=== PATIENT | male | born 1955 | race Caucasian/White ===

== ENCOUNTER 2019-04-05 13:12 | Emergency (ER) | payer OTHER ==
--- NOTE | 2019-04-05 14:30 | RAD REPORT ---
EXAM DESCRIPTION: RAD - Ankle Right 3 View - 04/05/2019 2:14 pm CLINICAL HISTORY: PAIN COMPARISON: No comparisons FINDINGS: Moderate soft tissue swelling is seen particularly along the lateral malleolus. Small bony fragments are present adjacent to the lateral malleolus, however favored to be related to previous t rauma. No definitive acute fracture seen. Large calcaneal spurs at identified.
--- NOTE | 2019-04-05 14:35 | ER ---
Nurse's Notes [facility] Name: Kulwant Martinez Age: 63 yrs Sex: Male : 1955 Arrival Date: 04/05/2019 Time: 13:14 Bed 11 Private MD: Emiliano Crisostomo E Diagnosis: Sprain of ankle Presentation: 04/05 13:32 Presenting complaint: Patient states: "I stepped in a hole the other day and blew out ss my ankle pretty bad. I guess it's just sprained, but it is hurting really bad." C/o R ankle pain. Transition of care: patient was not received from another setting of care. Onset of symptoms was April 03, 2019. Risk Assessment: Do you want to hurt yourself or someone else? Patient reports no desire to harm self or others. Initial Sepsis Screen: Does the patient meet any 2 criteria? No. Patient's initial sepsis screen is negative. Does the patient have a suspected source of infection? No. Patient's initial sepsis screen is negative. Note Pt ambulated to triage with steady gait/ cane. Care prior to arrival: None. 13:32 Method Of Arrival: Ambulatory ss 13:32 Acuity: MK 4 ss Historical: - Allergies: 13:34 No Known Allergies; ss - PMHx: 13:34 Hypertension; ss - Immunization history:: Adult Immunizations unknown. - Social history:: Smoking status: Patient uses tobacco products, smokes one pack cigarettes per day. - Ebola Screening: : Patient denies exposure to infectious person Patient denies travel to an Ebola-affected area in the 21 days before illness onset. Screenin:00 Abuse screen: Denies threats or abuse. Denies injuries from another. Nutritional iw screening: No deficits noted. Tuberculosis screening: No symptoms or risk factors identified. Fall Risk None identified. Assessment: 14:00 General: Appears in no apparent distress. Behavior is calm, cooperative. Pain: iw Complains of pain in right ankle and anterior aspect of right ankle. Neuro: Level of Consciousness is awake, alert, obeys commands. Cardiovascular: Patient's skin is warm and dry. Respiratory: Respiratory effort is even, unlabored. Musculoskeletal: Range of motion: intact in all extremities. Vital Signs: 13:34 BP 145 / 71; Pulse 87; Resp 20; Temp 98.2(TE); Pulse Ox 98% on R/A; Weight 117.93 kg; ss Height 5 ft. 10 in. (177.80 cm); Pain 8/10; 13:34 Body Mass Index 37.31 (117.93 kg, 177.80 cm) ED Course: 13:14 Patient arrived in ED. rg4 13:14 Emiliano Crisostomo MD is Private Physician. rg4 13:33 Triage completed. ss 13:34 Arm band placed on right wrist. ss 13:40 Rachel Dumont FNP-C is PHCP. kb 13:40 Nolan Gupta MD is Attending Physician. kb 13:54 Rachel Dumont FNP-C is PHCP. kb 13:54 Nolan Gupta MD is Attending Physician. kb 13:54 Meghan Stubbs, TAYLER is Primary Nurse. iw 14:00 No provider procedures requiring assistance completed. Patient did not have IV access iw during this emergency room visit. 14:14 XRAY Ankle RIGHT 3 view In Process Unspecified. EDMS 14:49 Patient has correct armband on for positive identification. iw Administered Medications: No medications were administered Outcome: 14:34 Discharge ordered by MD. kb 14:49 Discharged to home ambulatory. iw 14:49 Condition: good 14:49 Discharge instructions given to patient, Instructed on discharge instructions, follow up and referral plans. Demonstrated understanding of instructions, follow-up care. 14:50 Patient left the ED. iw Signatures: Dispatcher [employer] EDMS Rachel Dumont FNP-C FNP-Meghan Kong RN RN Joie Nguyen RN RN Claier Rhoades rg4
--- NOTE | 2019-04-05 14:35 | EDPHYS ---
Physician Documentation [facility] Name: Kulwant Martinez Age: 63 yrs Sex: Male : 1955 Arrival Date: 04/05/2019 Time: 13:14 Bed 11 Private MD: Emiliano Crisostomo E ED Physician Nolan Gupta HPI: 04/05 14:36 This 63 yrs old Male presents to ER via Ambulatory with complaints of Ankle kb Injury. 14:36 The patient presents with an injury, pain, that is acute, swelling, tenderness. The kb complaints affect the right ankle. Onset: The symptoms/episode began/occurred 2 day(s) ago. Context: The problem was sustained outdoors, resulted from stepped in a hole, The patient can fully bear weight on the affected extremity. can ambulate using a cane. Associated signs and symptoms: Pertinent positives: swelling, Pertinent negatives: calf tenderness, fever, nausea, numbness, rash, tingling, vomiting, warmth, weakness. Modifying factors: The symptoms are alleviated by nothing, the symptoms are aggravated by weight bearing. Severity of symptoms: At their worst the symptoms were moderate, in the emergency department the symptoms are unchanged. The patient has not experienced similar symptoms in the past. The patient has not recently seen a physician. Pt reprots he stepped in a hole on Friday and hurt his ankle. Came to make sure it wasn't broken. Historical: - Allergies: 13:34 No Known Allergies; ss - PMHx: 13:34 Hypertension; ss - Immunization history:: Adult Immunizations unknown. - Social history:: Smoking status: Patient uses tobacco products, smokes one pack cigarettes per day. - Ebola Screening: : Patient denies exposure to infectious person Patient denies travel to an Ebola-affected area in the 21 days before illness onset. ROS: 14:35 Constitutional: Negative for fever, chills, and weight loss, Cardiovascular: Negative kb for chest pain, palpitations, and edema, Respiratory: Negative for shortness of breath, cough, wheezing, and pleuritic chest pain, Abdomen/GI: Negative for abdominal pain, nausea, vomiting, diarrhea, and constipation, Skin: Negative for injury, rash, and discoloration, Neuro: Negative for headache, weakness, numbness, tingling, and seizure. 14:35 MS/extremity: Positive for injury or acute deformity, pain, swelling, tenderness, of the right ankle. Exam: 14:35 Constitutional: This is a well developed, well nourished patient who is awake, alert, kb and in no acute distress. Head/Face: Normocephalic, atraumatic. Chest/axilla: Normal chest wall appearance and motion. Nontender with no deformity. No lesions are appreciated. Cardiovascular: Regular rate and rhythm with a normal S1 and S2. No gallops, murmurs, or rubs. Normal PMI, no JVD. No pulse deficits. Respiratory: Lungs have equal breath sounds bilaterally, clear to auscultation and percussion. No rales, rhonchi or wheezes noted. No increased work of breathing, no retractions or nasal flaring. Abdomen/GI: Soft, non-tender, with normal bowel sounds. No distension or tympany. No guarding or rebound. No evidence of tenderness throughout. Skin: Warm, dry with normal turgor. Normal color with no rashes, no lesions, and no evidence of cellulitis. Neuro: Awake and alert, GCS 15, oriented to person, place, time, and situation. Cranial nerves II-XII grossly intact. Motor strength 5/5 in all extremities. Sensory grossly intact. Cerebellar exam normal. Normal gait. 14:35 Musculoskeletal/extremity: Extremities: grossly normal except: noted in the right ankle: pain, swelling, tenderness, ROM: intact in all extremities, Circulation is intact in all extremities. Sensation intact. Weight bearing: can bear weight with assistance only, uses cane. Vital Signs: 13:34 BP 145 / 71; Pulse 87; Resp 20; Temp 98.2(TE); Pulse Ox 98% on R/A; Weight 117.93 kg; ss Height 5 ft. 10 in. (177.80 cm); Pain 8/10; 13:34 Body Mass Index 37.31 (117.93 kg, 177.80 cm) ss MDM: 13:54 Patient medically screened. kb 14:32 Data reviewed: vital signs, nurses notes. Data interpreted: Pulse oximetry: on room air kb is 98 %. Interpretation: normal. Counseling: I had a detailed discussion with the patient and/or guardian regarding: the historical points, exam findings, and any diagnostic results supporting the discharge/admit diagnosis, radiology results, the need for outpatient follow up, a orthopedic surgeon, to return to the emergency department if symptoms worsen or persist or if there are any questions or concerns that arise at home. 04/05 13:35 Order name: XRAY Ankle RIGHT 3 view; Complete Time: 14:32 ss Administered Medications: No medications were administered Disposition: 04/06 06:56 Co-signature as Attending Physician, Nolan Gupta MD I agree with the assessment and alta plan of care. Disposition: 04/05/19 14:34 Discharged to Home. Impression: Sprain of ankle. - Condition is Stable. - Discharge Instructions: Ankle Sprain, [id number]. - Medication Reconciliation Form, Thank You Letter, Antibiotic Education, Prescription Opioid Use form. - Follow up: Emergency Department; When: As needed; Reason: Worsening of condition. Follow up: Private Physician; When: 2 - 3 days; Reason: Recheck today's complaints, Continuance of care, Re-evaluation by your physician. Signatures: Dispatcher [employer] EDRachel Cuba, CAISSON WORKER-C CAISSON WORKER-Nolan Pinedo MD MD cha Williams, Irene, TAYLER RN iw Joie Nguyen RN RN ss Corrections: (The following items were deleted from the chart) 04/05 14:50 14:34 04/05/2019 14:34 Discharged to Home. Impression: Sprain of ankle. Condition is iw Stable. Forms are Medication Reconciliation Form, Thank You Letter, Antibiotic Education, Prescription Opioid Use. Follow up: Emergency Department; When: As needed; Reason: Worsening of condition. Follow up: Private Physician; When: 2 - 3 days; Reason: Recheck today's complaints, Continuance of care, Re-evaluation by your physician. kb
== END 2019-04-05 14:50 | disposition home or self-care (01) ==
LOC: ER 13:12
DX: S93.401A Sprain of unspecified ligament of right ankle, initial encounter (principal); X58.XXXA Exposure to other specified factors, initial encounter; I10 Essential (primary) hypertension; F17.210 Nicotine dependence, cigarettes, uncomplicated
CPT/HCPCS: 99283